=== PATIENT | female | born 1990 | race Caucasian/White ===

== ENCOUNTER → 2017-10-17 | Outpatient (CLI) | payer MEDICAID ==
[2017-10-17 14:07] LABS: ALANINE AMINOTRANSFERASE 81 U/L (9-52); ALBUMIN 4.8 g/dL (3.5-5.0); ALKALINE PHOSPHATASE 80 U/L (38-126); ASPARTATE AMINO TRANSFERASE 23 U/L (14-36); BILIRUBIN,DIRECT 0.3 mg/dL (0.0-0.4); BILIRUBIN,TOTAL 0.6 mg/dL (0.2-1.3); TOTAL PROTEIN 7.7 g/dL (6.3-8.2)
[2017-10-19 13:37] LABS: HEPATITIS C QUANTITATION 18100 IU/mL (.)
[2017-10-21 06:39] LABS: HCV FIBROSURE ALT P5P 68 IU/L (0-40); HCV FIBROSURE GGT 74 IU/L (0-60); HCV FIBROSURE HAPTOGLOBIN 67 mg/dL (34-200); NECROINFLAM ACTIVITY GRADE A1-Minimal activity (.); NECROINFLAMM ACTIVITY SCORE 0.32 (0.00-0.17)
== END ==
LOC: LAB 13:09
PROVIDERS: ATTEND Physician Assistant Surgical
DX: B18.2 Chronic viral hepatitis C (principal); R94.5 Abnormal results of liver function studies
CPT/HCPCS: 36415; 80076; 81270; 82172; 82247; 82977; 83010; 83883; 84460; 84703; 87522

== ENCOUNTER → 2017-10-21 | Outpatient (CLI) | payer MEDICAID ==
--- NOTE | 2017-10-21 08:15 | WOMENS IMAGING REPORT ---
EXAM DESCRIPTION: U/S ABDOMEN TOTAL COMPLETED DATE/TIME: 10/21/2017 7:42 am REASON FOR STUDY: CHRONIC VIRAL HEPATITIS C R94.5 ABNORMAL RESULTS OF LIVER FUNCTION STUDIES B18.2 CHRONIC VIRAL HEPATITIS C R10.32 LEFT LOWER QUADRANT PAIN COMPARISON: None. TECHNIQUE: Dynamic and static grayscale images acquired of the abdomen and recorded on PACS. Additio nal selected color Doppler and spectral images recorded. LIMITATIONS: None. FINDINGS: PANCREAS: No masses. Visualized pancreatic duct normal caliber. LIVER: No masses. Echotexture normal. LIVER VASCULATURE: Normal directional flow of the main portal vein and hepatic veins. GALLBLADDER: No stones. Normal wall thickness. No pericholecystic fluid. ULTRASOUND-DETECTED GARCIA'S SIGN: Negative. INTRAHEPATIC DUCTS AND COMMON DUCT: CBD and intrahepatic ducts normal caliber. No filling defects. INFERIOR VENA CAVA: Normal flow. AORTA: No aneurysm. RIGHT KIDNEY:Normal size. Normal echogenicity. No solid or suspicious masses. No hydronephrosis. No c alcifications. LEFT KIDNEY: Normal size. Normal echogenicity. No solid or suspicious masses. No hydronephrosis. No calcifications. SPLEEN: Normal size. No solid masses. PERITONEAL AND PLEURAL SPACES: No ascites or effusions. OTHER: No other significant finding. IMPRESSION: NORMAL ABDOMINAL ULTRASOUND. TECHNICAL DOCUMENTATION: JOB ID: [id number] [employer]- All Rights Reserved
== END ==
LOC: WI 07:00
PROVIDERS: ATTEND Internal Medicine Gastroenterology
DX: B18.2 Chronic viral hepatitis C (principal); R94.5 Abnormal results of liver function studies; R10.32 Left lower quadrant pain
CPT/HCPCS: 76700

== ENCOUNTER 2019-03-29 03:14 | Inpatient (IN) | payer MEDICAID ==
[2019-03-29] MEDS ORDERED: CITRIC ACID/SODIUM CITRATE ORAL SOLN 15 ML UDCUP ONE (03:37)
[2019-03-29] MEDS ORDERED: OXYTOCIN 10 UNIT/ML VIAL ONE ×2 (03:37→03:57)
[2019-03-29] MEDS ORDERED: CEFAZOLIN 2 GM/D5W RTU 2 GM/50 ML RTUPB IV ONE ×2 (03:38→04:30)
[2019-03-29] MEDS ORDERED: OXYTOCIN/NORMAL SALINE 20 UNIT/1,000 ML RTUINJ ONE (03:38)
[2019-03-29] MEDS ORDERED: MISOPROSTOL 0.2 MG TABLET ONE (03:38)
[2019-03-29] MEDS ORDERED: METHYLERGONOVINE MALEATE INJ/PF 0.2 MG/1 ML AMPULE ONE (03:38)
[2019-03-29] MEDS ORDERED: EPHEDRINE SULFATE INJ 50 MG/1 ML AMPULE ONE (03:56)
[2019-03-29] MEDS ORDERED: FENTANYL CITRATE INJ/PF 100 MCG/2 ML AMPUL ONE ×2 (03:56→05:33)
[2019-03-29] MEDS ORDERED: MIDAZOLAM 2 MG/2 ML INJ ONE ×2 (03:56→04:34)
[2019-03-29] MEDS ORDERED: PROPOFOL INJ 200 MG/20 ML VIAL IV ONE (03:57)
[2019-03-29] MEDS ORDERED: FENTANYL CITRATE INJ/PF 250 MCG/5 ML AMPULE ONE (03:57)
[2019-03-29] MEDS ORDERED: RINGERS SOLUTION,LACTATED 1,000 ML IV PRN ×2 (04:11→05:36)
--- NOTE | 2019-03-29 04:39 | Warning Signs in Babies ---
VOD Warning Signs Datetime Report Generated by [facility]: 03/29/2019 04:39 VOD#608 -Warning Signs in Babies: Needs to be viewed. (03/29/2019 03:18:Renee Mercado RN)
[2019-03-29] MEDS ORDERED: ACETAMINOPHEN 1,000 MG/100 ML RTUPB IV ONE (04:50)
--- NOTE | 2019-03-29 04:59 | Admission Physical ---
Datetime Report Generated by CPN: 03/29/2019 04:59 CURRENT ADMISSION Chief Complaint: Uterine Contractions Indication for Induction: Not Applicable Admit Impression : , Intrauterine ; Active Labor; Ruptured Membranes; Repeat Section Admit Plan: Admit to Unit; Initiate Section Protocol ALLERGIES Medication Allergies: No Known Allergies (02/02/2016) Latex: No Latex Allergies OBSTETRICAL HISTORY EDC: 05/01/2019 00:00 : 5 Para: 4 Term: 2 : 2 Livin Cesareans: 3 VBACs: 1 Gestational Diabetes: Yes PTL/PROM: Yes Current Procedures: Ultrasound Obstetrical History Comments: g1: 11/2009; male, primary c/s for failure to progress @ 40 weeks; 7# 4 oz g2: 02/2013; male, c/s @ 39.3 weeks; GDM; 7# g3: 03/2014; female, stat c/s @ 34.1 weeks; abruption and NRFHTs; 3# 4oz g4: 2016; , male, demise, severe chorio g5: current SEE RECORDS Other Illicit Drugs: Yes Illicit Drug Comments: AMPHETAMINE ABUSE Cigarettes: Current Everyday Smoker. [id number] Cigarette Frequency: > 10 per day Advised to Stop: Yes MEDICAL HISTORY Hosp/Surgery: Yes Hepatitis/Liver Disease: Yes Medical History Comments: Hep C+ PHYSICAL EXAM General: Normal HEENT: Normal Neurologic: Normal Thyroid: Normal Heart: Normal Lungs: Normal Breast: Normal Back: Normal Abdomen: Normal Genitourinary Exam: Normal Extremities: Normal DTRs: Normal Pelvic Type: Adequate Vital Signs: Reviewed; Within Normal Limits VAGINAL EXAM Dilatation: 9 Effacement: 100 Station: 0 Contraction Comments: q 3 MEMBRANES Membranes: Ruptured FETUS A EGA: 35.2 Monitoring: External US FHR- Baseline: 160s Variability: Moderate 6-25bpm Accelerations: 10X10 Decelerations: None FHR Category: Category I Admit Comment: presents to L_D c/o contractions that started at 0100. Reports god movement. Had ROM. GBS Positive. History of (3) C/S w/ also w/ demise at 20 weeks. Hep C Positive. STAT C/S called PLANS FOR LABOR AND DELIVERY Labor and Delivery: None Pain Management: Spinal INFORMED CONSENT Signature: with User ID: [email or web address]
[2019-03-29] MEDS ORDERED: FENTANYL CITRATE INJ/PF 100 MCG/2 ML AMPUL IV PRN ×3 (05:11)
[2019-03-29] MEDS ORDERED: DIPHENHYDRAMINE HCL 50 MG/ML VIAL IV PRN (05:11)
[2019-03-29] MEDS ORDERED: MEPERIDINE HCL/PF INJ 25 MG/1 ML DISP.SYRIN IV PRN (05:11)
[2019-03-29] MEDS ORDERED: ONDANSETRON HCL INJ/PF 4 MG/2 ML SDV IV PRN (05:11)
[2019-03-29] MEDS ORDERED: PROMETHAZINE HCL INJ 25 MG/1 ML VIAL IV PRN ×3 (05:11→05:36)
[2019-03-29] MEDS ORDERED: MORPHINE SULFATE 10 MG/ML INJ IV PRN (05:11)
--- NOTE | 2019-03-29 05:12 | PDOC DELIVERY SUMMARY ---
Delivery Summary - Maternal Hx : IV Hx Para: II Hx # Term Pregnancies: 2 Hx # Pregnancies: 2 Number of Living Children: 2 SCOTT: 05/01/19 Gestational Age: 35.3 Risk Factors: Previous - previous C/S x 3, Other - Hepatitis C Ruptured Membranes: AROM - GBS Positive Time of Rupture: 01:00 Fluids: Clear - Delivery Presentation: Vertex Heart Rate Monitoring: Done Pre-Operatively Uterine Contraction Monitoring: External Support Person Present: Yes : Emergency Placenta: Within Normal Limits Placenta Description: Normal appearing Number of Vessels (Cord): 3 Nuchal Cord: No Delivery of Placenta Date: 03/29/19 Estimated Blood Loss: 200 ml - Medications Type of Anesthesia:: GA - Delivery Personnel MD: THIERNO KING
[2019-03-29] MEDS ORDERED: MEPERIDINE HCL/PF INJ 25 MG/1 ML DISP.SYRIN ONE (05:14)
[2019-03-29] MEDS ORDERED: ACETAMINOPHEN 325 MG TABLET PO PRN (05:36)
[2019-03-29] MEDS ORDERED: DIPH/PERTUSS(ACELL)/TETANUS VAC/PF 0.5 ML SYR (>=10YO) IM PRN (05:36)
[2019-03-29] MEDS ORDERED: OXYCODONE-ACETAMINOPHEN 5-325 MG TABLET PO PRN (05:36)
[2019-03-29] MEDS ORDERED: MEASLES,MUMPS&RUBELLA VACC/PF 0.5 ML VIAL SUBCUT PRN (05:36)
[2019-03-29] MEDS ORDERED: SIMETHICONE 80 MG TAB.CHEW PO PRN (05:36)
[2019-03-29] MEDS ORDERED: HYDROMORPHONE HCL INJ/PF 2 MG/ML AMPULE IV PRN (05:36)
[2019-03-29] MEDS ORDERED: OXYTOCIN/NORMAL SALINE 20 UNIT/1,000 ML RTUINJ IV PRN (05:36)
--- NOTE | 2019-03-29 05:36 | Operative Report ---
Operative Report DATE OF SURGERY: 03/29/19 PREOPERATIVE DIAGNOSIS: 1. Intrauterine at 35-2/7 weeks. 2. Previo us section x3. 3. Active labor. 4. rupture of membranes. 5. Hepatitis C positive. 6. GBS positive. 7. Limited care. 8. Tobacco use. 9. Rh+ POSTOPERATIVE DIAGNOSIS: Same OPERATION: Stat repeat section SURGEON: THIERNO JOAQUIN ANESTHESIA: GA TISSUE REMOVED OR ALTERED: Placenta COMPLICATIONS: None ESTIMATED BLOOD LOSS: 200 ml INTRAOPERATIVE FINDINGS: Fetus in a cephalic position wedged into the cervix; Apgars 6 at 1, 7 at 9; normal-appearing uterus with bowel adhesed to the abdominal wall; normal-appearing uterus, bilateral tubes and ovaries PROCEDURE: The patient was taken to the operating room where general anesthesia was obtained and found to be adequate. She was then prepped with Betadine and draped in the normal sterile fashion and placed in the dorsal supine position with a leftward tilt. A Pfannenstiel skin incision was then made, using her prior incisions as a guide, and carried through to the underlying layers of the fascia with the scalpel. The fascia was incised in the midline and the incision extended laterally with the Hernandez scissors. The superior aspect of the fascial incision was then grasped with Sweetie clamps elevated and the underlying rectus muscles dissected off both bluntly and sharply. Attention was then turned to the inferior aspect of the fascial incision which in a similar fashion was grasped, tented up with Sweetie clamps, and the rectus muscles dissected off both bluntly and sharply. The rectus muscles were then in the midline and the peritoneum was identified and entered both sharply and bluntly. The peritoneal incision was then extended superiorly and inferiorly with good visualization of the bladder. The bladder blade was inserted. The lower ut erine segment incised in a transverse fashion with the scalpel. The uterine incision was then extended bluntly and with the bandage scissors. There was no amniotic fluid seen. The bladder blade was removed and the 's head was wedged in the cervix. A nurse attempted to push the head up to the incision, without success. I then delivered both upper extremities, then the body and lower extremities. The head was then delivered atraumatically. The nose and mouth were suctioned and the cord doubly clamped and cut. The infant was handed off to waiting director of teenage activities. The placenta was then delivered manually and cleared of all clots and debris. The uterine incision was then repaired with 0 Vicryl in a running locked fashion. 0-Chromic was used to obtain hemostasis via imbrication of the initial layer. The bladder flap was then repaired with 3-0 Vicryl in a running fashion. The uterus was returned to the patient's abdomen and Interceed was placed overlying the uterine incision, as well as a piece placed vertically on the anterior surface of the uterus, to prevent further adhesions. The gutters were cleared of all clots and debris. All operative sites were noted to be hemos tatic. The fascia was reapproximated with 0 Vicryl in a running fashion from each lateral edge to the midline. The subcutaneous fat layer was then closed in an interrupted fashion with 3-0 vicryl. The skin was closed with 4-0 Monocryl in a running, subcuticular fashion. The patient tolerated the procedure well. Sponge, lap, needle and instrument counts are correct x 2. 2 g of Ancef were given prior to skin incision. The patient was taken to the recovery area awake and in stable condition.
[2019-03-29 05:43] LABS: HEMATOCRIT 31.3 % (36.0-47.0); HEMOGLOBIN 10.5 g/dL (12.0-15.5); MEAN CORPUSCULAR HEMOGLOBIN 30.9 pg (27.0-33.4); MEAN CORPUSCULAR HGB CONC 33.6 g/dL (32.0-36.0); MEAN CORPUSCULAR VOLUME 92 fl (80-97); PLATELET COUNT 400 10^3/uL (150-450); RED BLOOD COUNT 3.41 10^6/uL (3.72-5.28); RED CELL DISTRIBUTION WIDTH 13.6 % (11.5-14.0)
[2019-03-29 06:08] LABS: APPEARANCE,URINE CLOUDY; BILIRUBIN,URINE NEGATIVE (NEGATIVE); COLOR,URINE YELLOW; GLUCOSE, URINE NEGATIVE (NEGATIVE); KETONES,URINE NEGATIVE (NEGATIVE); LEUKOCYTE ESTERASE,URINE LARGE (NEGATIVE); NITRITE,URINE NEGATIVE (NEGATIVE); PROTEIN,URINE 30 mg/dL (NEGATIVE); URINE SPECIFIC GRAVITY 1.015; UROBILINOGEN,URINE NEGATIVE mg/dL (<2.0)
[2019-03-29 06:14] LABS: URINE AMPHETAMINES SCREEN NEGATIVE; URINE BARBITURATES SCREEN NEGATIVE; URINE BENZODIAZEPINES SCREEN NEGATIVE; URINE COCAINE SCREEN NEGATIVE; URINE MARIJUANA (THC) SCREEN NEGATIVE; URINE METHADONE SCREEN NEGATIVE; URINE PHENCYCLIDINE SCREEN NEGATIVE
[2019-03-29 06:18] LABS: ABSOLUTE LYMPHOCYTES# (MANUAL) 0.6 10^3/uL (0.5-4.7); ABSOLUTE MONOCYTES # (MANUAL) 0.2 10^3/uL (0.1-1.4); BAND NEUTROPHILS % (MANUAL) 9 % (3-5); BASOPHILS % (MANUAL) 0 % (0-2); EOSINOPHILS % (MANUAL) 0 % (0-6); LYMPHOCYTES % (MANUAL) 3 % (13-45); MONOCYTES % (MANUAL) 1 % (3-13); PLATELET COMMENT ADEQUATE; SEGMENTED NEUTROPHILS % (MAN) 87 % (42-78); TOTAL CELLS COUNTED 100
[2019-03-29 06:19] LABS: RBC MORPHOLOGY COMMENT NORMO-CYTIC/CHROMIC
[2019-03-29] MEDS ORDERED: MORPHINE SULFATE 10 MG/ML INJ ONE (06:38)
[2019-03-29] MEDS: CEFAZOLIN 1 GM/D5W RTU 1 GM/50 ML RTUPB IV SCH ×4 (08:36→23:59)
[2019-03-29] MEDS: IBUPROFEN 800 MG TABLET PO SCH ×3 (08:36→19:30)
[2019-03-29] MEDS: KETOROLAC TROMETHAMINE INJ/PF 30 MG/1 ML SDV IV SCH ×3 (08:36→21:36)
[2019-03-29] MEDS: OXYCODONE-ACETAMINOPHEN 5-325 MG TABLET PO PRN ×3 (08:38→20:31)
[2019-03-29] MEDS: PRENATAL VITAMIN W DHA CAPSULE PO SCH (09:42)
[2019-03-29] MEDS: DOCUSATE SODIUM 100 MG CAPSULE PO SCH ×2 (09:42→18:21)
[2019-03-29] MEDS ORDERED: ONDANSETRON HCL INJ/PF 4 MG/2 ML SDV ONE (14:15)
[2019-03-29] MEDS ORDERED: SUCCINYLCHOLINE CHLORIDE INJ 200 MG/10 ML VIAL ONE (14:15)
[2019-03-29] MEDS ORDERED: DEXAMETHASONE SOD PHOSPHATE INJ 4 MG/1 ML VIAL ONE (14:15)
[2019-03-29] MEDS ORDERED: KETOROLAC TROMETHAMINE 60 MG/2 ML SDV ONE (14:15)
[2019-03-29] MEDS ORDERED: METOCLOPRAMIDE HCL INJ/PF 10 MG/2 ML SDV ONE (14:15)
[2019-03-30] MEDS: OXYCODONE-ACETAMINOPHEN 5-325 MG TABLET PO PRN ×5 (01:03→22:30)
[2019-03-30] MEDS: IBUPROFEN 800 MG TABLET PO SCH ×3 (05:19→22:31)
[2019-03-30 08:02] LABS: HEMATOCRIT 25.2 % (36.0-47.0); HEMOGLOBIN 8.5 g/dL (12.0-15.5); MEAN CORPUSCULAR HEMOGLOBIN 31.2 pg (27.0-33.4); MEAN CORPUSCULAR HGB CONC 33.9 g/dL (32.0-36.0); MEAN CORPUSCULAR VOLUME 92 fl (80-97); PLATELET COUNT 348 10^3/uL (150-450); RED BLOOD COUNT 2.73 10^6/uL (3.72-5.28); RED CELL DISTRIBUTION WIDTH 13.8 % (11.5-14.0); WHITE BLOOD COUNT 17.8 10^3/uL (4.0-10.5)
--- NOTE | 2019-03-30 08:18 | PDOC PROGRESS REPORT ---
Subjective-OB Progress Note for:: 03/30/19 Subjective: no complaints Physical Exam (OB) Vital Signs: Temp Pulse Resp BP Pulse Ox 98.3 F 84 18 102/58 L 99 03/30/19 07:47 03/30/19 07:47 03/30/19 07:47 03/30/19 07:47 03/30/19 07:47 Intake & Output 03/29/19 03/30/19 03/31/19 06:59 06:59 06:59 Intake Total 2320 Output Total 1250 Balance 1070 - General General Appearance: Appears well - PIH/Pre-Eclampsia DTR's: 2 + Clonus: Negative Headache: Absent Epigastric Pain: No Visual Changes: No - Dressing Removed: Yes - Opsite scant dry drainage Incision: Dressing Closure Type: Sutures - Lochia Lochia Amount: Small 10-25 ml Lochia Color: Rubra/Red - Abdomen Description: Tender, Soft, Round Hernia Present: No Bowel Sounds: Normoactive Flatus Presence: Present Fundal Description: Firm, Midline Fundal Height: u/u - u/2 Objective-Diagnostic Laboratory: 03/30/19 07:34 03/30/19 07:34 WBC 17.8 H RBC 2.73 L Hgb 8.5 L Hct 25.2 L MCV 92 MCH 31.2 MCHC 33.9 RDW 13.8 Plt Count 348 Assessment and Plan(PN) - Assessment and Plan (1) Anemia due to blood loss, acute Is this a current diagnosis for this admission?: Yes (2) Anemia in mother complicating , childbirth or puerperium Is this a current diagnosis for this admission?: Yes (3) Chronic anemia Is this a current diagnosis for this admission?: Yes (5) Drug abuse, amphetamine type Is this a current diagnosis for this admission?: Yes (6) Placental abruption, delivered Is this a current diagnosis for this admission?: Yes (7) Premature labor Is this a current diagnosis for this admission?: Yes (8) Smoker Is this a current diagnosis for this admission?: Yes - Time Spent with Patient Time with patient: Less than 15 minutes - Disposition Anticipated Discharge: Home Within: within 24 hours
[2019-03-30] MEDS: PRENATAL VITAMIN W DHA CAPSULE PO SCH (09:11)
[2019-03-30] MEDS: DOCUSATE SODIUM 100 MG CAPSULE PO SCH ×2 (09:12→18:00)
[2019-03-31] MEDS: IBUPROFEN 800 MG TABLET PO SCH (05:06)
[2019-03-31] MEDS: OXYCODONE-ACETAMINOPHEN 5-325 MG TABLET PO PRN ×2 (05:07→11:03)
[2019-03-31 08:24] VITALS: BP 110/64
--- NOTE | 2019-03-31 09:11 | PDOC PROGRESS REPORT ---
Subjective-OB Progress Note for:: 03/31/19 Subjective: Doing well, no c/o, baby will stay in hospital for a few days, ready to go home, scant bleeding, bottle feeding Physical Exam (OB) Vital Signs: Temp Pulse Resp BP Pulse Ox 98.0 F 96 14 110/64 100 03/31/19 07:35 03/31/19 07:35 03/31/19 07:35 03/31/19 07:35 03/31/19 07:35 Intake & Output 03/30/19 03/31/19 04/01/19 06:59 06:59 06:59 Intake Total 2320 550 Output Total 1250 Balance 1070 550 - PIH/Pre-Eclampsia DTR's: 2 + Clonus: Negative Headache: Absent Epigastric Pain: No Visual Changes: No - Dressing Removed: No Incision: Dressing Closure Type: Surgical Glue - Lochia Lochia Amount: Scant < 10 ml Lochia Color: Rubra/Red - Abdomen Description: Tender, Soft Hernia Present: No Fundal Description: Firm, Midline Fundal Height: u/u - u/2 Objective-Diagnostic Laboratory: 03/30/19 07:34 Assessment and Plan(PN) - Assessment and Plan (1) Delivery by emergency caesarean section Is this a current diagnosis for this admission?: Yes (2) Drug abuse, amphetamine type Is this a current diagnosis for this admission?: Yes (3) Placental abruption, delivered Is this a current diagnosis for this admission?: Yes (4) Anemia in mother complicating , childbirth or puerperium Is this a current diagnosis for this admission?: Yes (5) Smoker Is this a current diagnosis for this admission?: Yes (6) Vaginal bleeding before 22 weeks gestation Is this a current diagnosis for this admission?: Yes (7) Anemia due to blood loss, acute Is this a current diagnosis for this admission?: Yes - Time Spent with Patient Time with patient: Less than 15 minutes Medications reviewed and adjusted accordingly: Yes - Disposition Anticipated Discharge: Home Within: within 24 hours
--- NOTE | 2019-03-31 09:19 | PDOC DISCHARGE SUMMARY ---
Final Diagnosis Discharge Date: 03/31/19 - Final Diagnosis (1) Delivery by emergency caesarean section Is this a current diagnosis for this admission?: Yes (2) Drug abuse, amphetamine type Is this a current diagnosis for this admission?: Yes (3) Placental abruption, delivered Is this a current diagnosis for this admission?: Yes (4) Anemia in mother complicating , childbirth or puerperium Is this a current diagnosis for this admission?: Yes (5) Smoker Is this a current diagnosis for this admission?: Yes (6) Vaginal bleeding before 22 weeks gestation Is this a current diagnosis for this admission?: Yes (7) Anemia due to blood loss, acute Is this a current diagnosis for this admission?: Yes Discharge Data - Discharge Medication Prescriptions: Oxycodone HCl/Acetaminophen [Percocet 5-325 mg Tablet] 1 tab PO Q4HP PRN #20 tablet PRN Reason: Ferrous Sulfate [Feosol 325 mg Tablet] 325 mg PO BID #60 tablet Ibuprofen [Motrin 800 mg Tablet] 800 mg PO Q8 #60 tablet Home Medications: Ibuprofen [Motrin 800 mg Tablet] 800 mg PO Q8 #30 tablet 02/04/16 Oxycodone HCl/Acetaminophen [Percocet 5-325 mg Tablet] 2 tab PO Q4HP PRN #20 tablet 02/04/16 Ferrous Sulfate [Feosol 325 mg Tablet] 325 mg PO BID #60 tablet 03/31/19 Ibuprofen [Motrin 800 mg Tablet] 800 mg PO Q8 #60 tablet 03/31/19 Oxycodone HCl/Acetaminophen [Percocet 5-325 mg Tablet] 1 tab PO Q4HP PRN #20 tablet 03/31/19 Gestational Age: 35.2 Reason(s) for Admission: PROM - minimal care, + Hep C , Drug abuse, hx 2 C/S, Group B Strep Positive Admission Note: + Hep C, hx C/S x 2, drug abuse, minimal care Procedures: NST, Ultrasound Intrapartum Procedure(s): : Low Cervical, Transverse - Data Baby 1 Female at 1 minute: 6 at 5 minutes: 7 Weight: 2.07 kg Home with Mother: No Complications: Yes - - Diagnosis Test Laboratory: Temp Pulse Resp BP Pulse Ox 98.0 F 96 14 110/64 100 03/31/19 07:35 03/31/19 07:35 03/31/19 07:35 03/31/19 07:35 03/31/19 07:35 03/29/19 03/29/19 03/30/19 03:25 05:26 07:34 RBC 3.41 L 2.73 L Hgb 10.5 L 8.5 L Hct 31.3 L 25.2 L Urine Opiates Screen NEGATIVE - Discharge information/Instructions Discharge Activity: Activity As Tolerated, Balance Activity w/Rest, No Lifting Over 10 Pounds, No Lifting/Push/Pulling, Pelvic Rest Discharge Diet: As Tolerated, Regular Disposition: HOME, SELF-CARE Follow up with: [facility] in: 1, Weeks
[2019-03-31] MEDS: DOCUSATE SODIUM 100 MG CAPSULE PO SCH (11:03)
[2019-03-31] MEDS: PRENATAL VITAMIN W DHA CAPSULE PO SCH (11:03)
== END 2019-03-31 12:05 | disposition home or self-care (01) | DRG 786 ==
LOC: LC 03:14 → LR 03:48 → 2S 06:51
PROVIDERS: ADMIT Obstetrics & Gynecology; ATTEND Obstetrics & Gynecology
PROC: 10D00Z1 Extraction of Products of Conception, Low, Open Approach (ICD-10-PCS; principal; 2019-03-29)
DX: O45.93 Premature separation of placenta, unspecified, third trimester (principal); O60.14X0 Preterm labor third trimester with preterm delivery third trimester, not applicable or unspecified; D62 Acute posthemorrhagic anemia; O98.42 Viral hepatitis complicating childbirth; O99.323 Drug use complicating pregnancy, third trimester; Z37.0 Single live birth; O99.02 Anemia complicating childbirth; F15.10 Other stimulant abuse, uncomplicated; O99.334 Smoking (tobacco) complicating childbirth; F17.210 Nicotine dependence, cigarettes, uncomplicated; O99.824 Streptococcus B carrier state complicating childbirth; B19.20 Unspecified viral hepatitis C without hepatic coma; Z79.899 Other long term (current) drug therapy; Z3A.35 35 weeks gestation of pregnancy
CPT/HCPCS: 1961; 36415; 80307; 81001; 85025; 85027; 86592; 86850; 86900; 86901; 88307; 94760; J0131; J0330; J0690; J1100; J1170; J1885; J2175; J2210; J2250; J2270; J2405; J2590; J2704; J2765; J3010; J3490; J7120

== ENCOUNTER 2020-05-09 16:34 | Emergency (ER) | payer MEDICAID ==
[2020-05-09 16:38] VITALS: BP 120/61
--- NOTE | 2020-05-09 16:57 | ER Document Report ---
ED Medical Screen (RME) - General Chief Complaint: Vag Bleeding, +preg <12wks Stated Complaint: ABDOMINAL PAIN,VAGINAL BLEEDING Time Seen by Provider: 05/09/20 16:51 TRAVEL OUTSIDE OF THE [place] IN LAST 30 DAYS: No - HPI Notes: 05/09/20 16:55 29-year-old female 5 para 4, 8 weeks and 4 days presents to the emergency room from the health department for concerns of vaginal bleeding. Patient states she is at the health department today for a visit and because she has been bleeding since May 02 and was advised that she come to the emergency room for an ultrasound. Last menstrual cycle was March 10, 2020. Reports some dull cramping in her pelvic area. Patient states she is going to about 6 pads a day. Denies any fevers or chills, nausea vomiting or diarrhea. Denies any chest pain or shortness of breath I have greeted and performed a rapid initial assessment of this patient. A comprehensive ED assessment and evaluation of the patient, analysis of test results and completion of the medical decision making process will be conducted by additional ED providers. PHYSICAL EXAMINATION: GENERAL: Well-appearing, well-nourished and in no acute distress. CV: s1, s2 regular LUNGS: No respiratory distress - Related Data Allergies/Adverse Reactions: No Known Allergies Allergy (Verified 02/02/16 12:27) Past Medical History - Past Medical History Cardiac Medical History: Denies: Hx Hypertension, Hx Pulmonary Embolism, Hx Heart Murmur Pulmonary Medical History: Reports: Hx Asthma - Not medicated Denies: Hx Sleep Apnea, Hx Tuberculosis Neurological Medical History: Denies: Hx Cerebrovascular Accident, Hx Seizures Endocrine Medical History: Denies: Hx Hyperthyroidism, Hx Hypothyroidism Renal/ Medical History: Denies: Hx Kidney Stones, Hx Ovarian Cysts, Hx Pelvic Inflammatory Disease Malignancy Medical History: Denies: Hx Breast Cancer, Hx Cervical Cancer, Hx Ovarian Cancer GI Medical History: Denies: Hx Gastroesophageal Reflux Disease, Hx Hiatal Hernia, Hx Ulcer Musculoskeltal Medical History: Denies Hx Fibromyalgia Psychiatric Medical History: Denies: Hx Bipolar Disorder, Hx Depression, Hx Post Traumatic Stress Disorder, Hx Schizophrenia Traumatic Medical History: Denies: Hx Fractures Infectious Medical History: Denies: Hx HIV Past Surgical History: Reports: Hx Section - x3 - Immunizations Hx Diphtheria, Pertussis, Tetanus Vaccination: Yes - November 2011 Physical Exam - Vital signs Vitals: Temp Pulse Resp BP Pulse Ox 98.8 F 81 16 120/61 99 05/09/20 16:37 05/09/20 16:37 05/09/20 16:37 05/09/20 16:37 05/09/20 16:37 Course - Vital Signs Vital signs: Temp Pulse Resp BP Pulse Ox 98.8 F 81 16 120/61 99 05/09/20 16:37 05/09/20 16:37 05/09/20 16:37 05/09/20 16:37 05/09/20 16:37
[2020-05-09 17:29] LABS: ABSOLUTE EOSINOPHILS # (AUTO) 0.2 10^3/uL (0.0-0.6); ABSOLUTE LYMPHOCYTES (AUTO) 2.6 10^3/uL (0.5-4.7); ABSOLUTE MONOCYTES (AUTO) 0.3 10^3/uL (0.1-1.4); ABSOLUTE NEUT (AUTO) 3.1 10^3/uL (1.7-8.2); BASOPHILS % (AUTO) 0.5 % (0-2); EOSINOPHILS % (AUTO) 3.2 % (0-6); HEMATOCRIT 36.6 % (36.0-47.0); HEMOGLOBIN 12.4 g/dL (12.0-15.5); LYMPHOCYTES % (AUTO) 41.5 % (13-45); MEAN CORPUSCULAR HEMOGLOBIN 29.8 pg (27.0-33.4); MEAN CORPUSCULAR HGB CONC 33.9 g/dL (32.0-36.0); MEAN CORPUSCULAR VOLUME 88 fl (80-97); MONOCYTES % (AUTO) 5.2 % (3-13); PLATELET COUNT 377 10^3/uL (150-450); RED BLOOD COUNT 4.16 10^6/uL (3.72-5.28); RED CELL DISTRIBUTION WIDTH 12.9 % (11.5-14.0); SEGMENTED NEUTROPHILS % (AUTO) 49.6 % (42-78); TOTAL CELLS COUNTED % (AUTO) 100 %; WHITE BLOOD COUNT 6.2 10^3/uL (4.0-10.5)
[2020-05-09 17:46] LABS: ALBUMIN 4.3 g/dL (3.5-5.0); ALKALINE PHOSPHATASE 61 U/L (38-126); APPEARANCE,URINE SLIGHTLY-CLOUDY; ASPARTATE AMINO TRANSFERASE 42 U/L (14-36); BILIRUBIN,TOTAL 0.3 mg/dL (0.2-1.3); BILIRUBIN,URINE NEGATIVE (NEGATIVE); BLOOD UREA NITROGEN 7 mg/dL (7-20); CALCIUM 9.3 mg/dL (8.4-10.2); COLOR,URINE YELLOW; GLUCOSE 85 mg/dL (75-110); GLUCOSE, URINE NEGATIVE (NEGATIVE); KETONES,URINE NEGATIVE (NEGATIVE); LEUKOCYTE ESTERASE,URINE NEGATIVE (NEGATIVE); NITRITE,URINE NEGATIVE (NEGATIVE); POTASSIUM 4.2 mmol/L (3.6-5.0); PROTEIN,URINE NEGATIVE (NEGATIVE); TOTAL PROTEIN 7.4 g/dL (6.3-8.2); URINE SPECIFIC GRAVITY 1.016; UROBILINOGEN,URINE NEGATIVE mg/dL (<2.0)
[2020-05-09 17:51] LABS: CARBON DIOXIDE 30 mmol/L (22-30); CHLORIDE 102 mmol/L (98-107)
[2020-05-09 18:03] LABS: ANION GAP 3 (5-19)
--- NOTE | 2020-05-09 18:21 | RADIOLOGY REPORT (SQ) ---
EXAM DESCRIPTION: U/S [id number] TRNABD 1GES W/ODOP IMAGES COMPLETED DATE/TIME: 05/09/2020 5:55 pm REASON FOR STUDY: [id number], vaginal bleeding x2w, 6pad/day COMPARISON: None. TECHNIQUE: Transvaginal static and realtime grayscale images acquired of the pelvis. Additional nereyda cted spectral and color Doppler images recorded. All images stored on PACs. bHCG: Not available. CLINICAL DATES: LMP 03/10/2020 8 weeks 4 days LIMITATIONS: None. FINDINGS: FETUS: Single Living intrauterine . ULTRASOUND EGA: 5 weeks 3 days by gestational sac size. pole is not seen. ULTRASOUND SCOTT: 01/06/2021 EFW: Not applicable less than 20 weeks. CRL: Not yet seen. FHR: Not yet seen. Beats per minute. SURVEY: Too early to assess. AMNIOTIC FLUID: Adequate amount. PLACENTA: Not yet developed due to early gestation. SUBCHORIONIC BLEED: No SIZE OF BLEED: Not applicable. UTERUS: No masses. No anomalies. CERVICAL LENGTH: 3.5 cm. Closed. RIGHT ADNEXA: Normal ovary with normal vascular flow. 2.3 x 1.6 x 1.5 cm. No adnexal free fluid. No adnexal masses. LEFT ADNEXA: Normal ovary with normal vascular flow. 2.5 x 1.7 x 1.9 cm. No adnexal free fluid. No adnexal masses. FREE FLUID: None. OTHER: No other significant finding. IMPRESSION: There is an intrauterine gestational sac suggesting an gestation of 5 weeks 3 days. Fet al pole is not yet seen. Follow-up as clinically indicated. Trimester of : First trimester - 0 to 13 weeks. TECHNICAL DOCUMENTATION: JOB ID: [id number] 2010 [employer]- All Rights Reserved rev-02/13 Reading location - IP/workstation name: [email or web address]
--- NOTE | 2020-05-09 19:01 | ER Document Report ---
ED GI/ - General Chief Complaint: Vag Bleeding, +preg <12wks Stated Complaint: ABDOMINAL PAIN,VAGINAL BLEEDING Time Seen by Provider: 05/09/20 16:51 Primary Care Provider: [facility] [Provider Group] - 05/11/20 ABRAHAM LEON PA-C [Primary Care Provider] - Follow up as needed Notes: Patient is a A1 29-year-old female who presents to the emergency department with a chief complaint of vaginal bleeding. Patient states that she has been bleeding since the 28 April. Patient states that she went to the health department and she found out she was . She was referred here to the emergency department for an ultrasound. Patient states that her last menstrual cycle was on April 09, 2020. States that she is about 8 weeks . Denies any past medical history. Does not take any medications. Patient denies any vaginal discharge. Denies any dysuria. TRAVEL OUTSIDE OF THE [place] IN LAST 30 DAYS: No - Related Data Allergies/Adverse Reactions: No Known Allergies Allergy (Verified 02/02/16 12:27) Home Medications: Past Medical History - Social History Smoking Status: Current Every Day Smoker Frequency of alcohol use: None Drug Abuse: None Family History: None - Past Medical History Cardiac Medical History: Denies: Hx Hypertension, Hx Pulmonary Embolism, Hx Heart Murmur Pulmonary Medical History: Reports: Hx Asthma - Not medicated Denies: Hx Sleep Apnea, Hx Tuberculosis Neurological Medical History: Denies: Hx Cerebrovascular Accident, Hx Seizures Endocrine Medical History: Denies: Hx Hyperthyroidism, Hx Hypothyroidism Renal/ Medical History: Denies: Hx Kidney Stones, Hx Ovarian Cysts, Hx Pelvic Inflammatory Disease Malignancy Medical History: Denies: Hx Breast Cancer, Hx Cervical Cancer, Hx Ovarian Cancer GI Medical History: Denies: Hx Gastroesophageal Reflux Disease, Hx Hiatal Hernia, Hx Ulcer Musculoskeletal Medical History: Denies Hx Fibromyalgia Psychiatric Medical History: Denies: Hx Bipolar Disorder, Hx Depression, Hx Post Traumatic Stress Disorder, Hx Schizophrenia Traumatic Medical History: Denies: Hx Fractures Infectious Medical History: Denies: Hx HIV Past Surgical History: Reports: Hx Section - x3 - Immunizations Hx Diphtheria, Pertussis, Tetanus Vaccination: Yes - November 2011 Review of Systems - Review of Systems Notes: REVIEW OF SYSTEMS: CONSTITUTIONAL : Denies recent illness. Denies recent unintentional weight loss. Denies fever, chills, or sweats. EENT: Denies eye, ear, throat, or mouth pain, discharge, or symptoms. Denies nasal or sinus congestion. CARDIOVASCULAR: Denies chest pain. RESPIRATORY: Denies shortness of breath, cough, congestion, difficulty breathing, or wheezing. GASTROINTESTINAL: Denies nausea, vomiting, and diarrhea. Denies abdominal pain. Denies constipation. Last BM: GENITOURINARY: Denies difficulty urinating, burning, blood in urine, urgency or frequency. FEMALE GENITOURINARY: See HPI. MUSCULOSKELETAL: Denies neck and back pain. Denies joint pain or swelling. SKIN: Denies rash, itchiness, or lesions HEMATOLOGIC : Denies easy bruising or bleeding. LYMPHATIC: Denies swollen, painful, enlarged glands. NEUROLOGICAL: Denies no numbness or tingling denies weakness. Denies headache. Denies altered mental status. Denies alteration in speech. PSYCHIATRIC: Denies stress, anxiety, alteration in sleep patterns, or depression. All other systems reviewed and negative. Physical Exam - Vital signs Vitals: Temp Pulse Resp BP Pulse Ox 98.8 F 81 16 120/61 99 05/09/20 16:37 05/09/20 16:37 05/09/20 16:37 05/09/20 16:37 05/09/20 16:37 - Notes Notes: PHYSICAL EXAMINATION: GENERAL: Appears well, healthy, well-nourished, no acute distress. HEAD: Normocephalic, atraumatic. EYES: PERRL, conjunctiva normal, all extraocular movements intact, sclera nonicteric ENT: Moist mucous membranes. NECK: Supple, no noticeable swelling, redness, rash. Normal range of motion. LUNGS: Equal breath sounds bilaterally and clear to auscultation. No wheezes rales or rhonchi. CARDIOVASCULAR: S1-S2, regular rate, regular rhythm. Radial pulses 2+, normal. ABDOMEN: Normoactive bowel sounds. Soft, nontender, no guarding, no rebound tenderness, and no masses palpated. EXTREMITIES: Normal strength and range of motion, no pitting or edema. No cyanosis. NEUROLOGICAL: Moves all extremities upon command. Strength 5/5 in all extremities. PSYCH: Normal mood, normal affect. SKIN: Warm, dry. No rash, lesions, ulcerations noted. Normal skin turgor. Course - Re-evaluation Re-evalutation: 05/09/20 18:42 Hematology is unremarkable. Chemistries show a sodium of 135. hCG is 3894, consistent with her current . Urinalysis shows a large amount of blood, but this is consistent with her vaginal bleeding. Cervical os is closed via ultrasound. Patient is Rh+, no RhoGam needed. At this time, patient will be referred to [facility]. She will follow-up with them. She is in agreement with this plan. Follow-up precautions were given. Verbal discharge instructions were given to the patient. They verbalized understanding. They are stable for discharge. 05/09/20 19:11 I put the patient's discharge paperwork up and found out that they were not in the room for discharge. The primary nurse tried calling and the patient did not answer the phone. - Vital Signs Vital signs: Temp Pulse Resp BP Pulse Ox 98.8 F 81 16 120/61 99 05/09/20 16:37 05/09/20 16:37 05/09/20 16:37 05/09/20 16:37 05/09/20 16:37 - Laboratory Result Diagrams: 05/09/20 17:03 05/09/20 17:03 Laboratory results interpreted by me: 05/09/20 05/09/20 17:03 17:03 Sodium 135.2 L Anion Gap 3 L AST 42 H ALT 46 H Beta HCG, Quant 3894.90 H Urine Blood LARGE H Discharge - Discharge Clinical Impression: Vaginal bleeding during Condition: Stable Disposition: HOME, SELF-CARE Additional Instructions: You were seen today in the emergency department for vaginal bleeding. You do have a live intrauterine , but only a sac is seen. Please do not have sex until [facility] clears you. Do not place anything in your vagina. Follow-up with [facility] in regards to this visit. If you pass large clots, return to the emergency department. Referrals: ABRAHAM LEON PA-C [Primary Care Provider] - Follow up as needed [facility] [Provider Group] - 05/11/20
== END 2020-05-09 19:11 | disposition home or self-care (01) ==
LOC: ER 16:34
DX: O20.9 Hemorrhage in early pregnancy, unspecified (principal); O99.331 Smoking (tobacco) complicating pregnancy, first trimester; Z3A.08 8 weeks gestation of pregnancy
CPT/HCPCS: 36415; 76801; 80053; 81001; 83690; 84702; 85025; 86900; 86901; 99285